=== PATIENT | female | born 1980 | race Caucasian/White ===

== ENCOUNTER 2020-06-10 11:03 | Outpatient (CLI) | payer BC, SELFPAY ==
--- NOTE | ~2020-06-10 | US_ITS ---
EXAMINATION: US soft tissue UE RT DATE: 06/10/2020 12:23 INDICATION: Identify Location for Nexplanon implant TECHNIQUE: Multiple grayscale and Doppler ultrasound images of the right upper arm were obtained. COMPARISON: Right humerus radiographs dated 06/10/2020 FINDINGS: Initially the implant was unable to be identified. Radiographs of the right upper arm were obtained a long with fluoroscopy to identify the generalized location and depth of the implant. Subsequent [facility] ultrasound identified the 4 cm long linear echogenic Nexplanon implant just deep to the superfici al muscular fascia of the medial aspect of the biceps brachii at the junction of the proximal to mid third of the right upper arm. The location orientation of the implant was marked on the skin for plan billy subsequent explantation. The depth of the implant is approximately 6-8 mm deep to the skin surfac e. IMPRESSION: 1. Implant identified and marked at the medial aspect of the proximal to middle third of the right up per arm. Reviewed, dictated and finalized at location A. IMPRESSION: 1. Implant identified and marked at the medial aspect of the proximal to middle third of the right upper arm.
--- NOTE | ~2020-06-10 | XR_ITS ---
XR humerus RT DATE: 06/10/2020 12:10 INDICATION: Nexplanon location TECHNIQUE: AP and lateral views COMPARISON: None FINDINGS: Nexplanon implant is identified within the anteromedial subcutaneous tissues of the right u pper extremity at the level of the mid to upper humeral shaft. No significant bony abnormality is identified IMPRESSION: Nexplanon implant Reviewed, dictated and finalized at location B. IMPRESSION: Nexplanon implant
== END 2020-06-10 11:04 | disposition home or self-care (01) ==
PROVIDERS: PCP Physician Assistant Medical; Visit Provider Student in an Organized Health Care Education/Training Program
DX: Z30.46 Encounter for surveillance of implantable subdermal contraceptive (principal)
CPT/HCPCS: 73060; 76882

== ENCOUNTER → 2023-04-26 13:57 | Outpatient (CLI) | payer BC, SELFPAY ==
--- NOTE | ~2023-04-26 | MM_ITS ---
EXAMINATION: MM screening jessica BI w fabiano HISTORY: Screening mammogram TECHNIQUE: Craniocaudal and mediolateral oblique 3-D tomosynthesis images were obtained and synthetic 2-D images were generated. CAD analysis was submitted and interpreted. COMPARISON: No prior mammogram is available for comparison at this institution. Baseline examination. BREAST PARENCHYMAL COMPOSITION: FINDINGS: Rounded 14.5 mm low-density circumscribed opacity in the upper outer left breast with halo sign, benign in appearance, most likely a benign cyst. There is no evidence of suspicious mass, calci fication, or architectural distortion to suggest malignancy in either breast. IMPRESSION: 1. Benign 14.5 mm circumscribed low-density upper outer quadrant left breast opacity, likely a benign cyst. No mammographic evidence of malignancy. 2. Recommend routine screening mammography in one year. BI-RADS Category 2: Benign finding(s). 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 Benign 14.5 mm circumscribed low-density upper outer quadrant left breast op acity, likely a benign cyst. No mammographic evidence of malignancy. 2. Recommend routine screening mammography in one year. BI-RADS Category 2: Benign finding(s).
== END ==
PROVIDERS: PCP Obstetrics & Gynecology; Visit Provider Obstetrics & Gynecology
DX: Z12.31 Encounter for screening mammogram for malignant neoplasm of breast (principal); R92.8 Other abnormal and inconclusive findings on diagnostic imaging of breast
CPT/HCPCS: 77063; 77067

== ENCOUNTER 2024-06-07 13:26 | Outpatient (CLI) | payer BC, SELFPAY ==
--- NOTE | ~2024-06-07 | MM_ITS ---
EXAMINATION: MM screening jessica BI w fabiano HISTORY: Screening TECHNIQUE: Craniocaudal and mediolateral oblique 3-D tomosynthesis images were obtained and synthetic 2-D images were generated. CAD analysis was submitted and interpreted. COMPARISON: 04/26/2023 BREAST PARENCHYMAL COMPOSITION: Dense: The breasts are heterogeneously dense, which may obscure small masses FINDINGS: There is no evidence of suspicious mass, calcification, or architectural distortion to sugg est malignancy in either breast. There has been no suspicious interval change. IMPRESSION: 1. No mammographic evidence of malignancy. 2. Recommend routine screening mammography in one year. BI-RADS Category 1: Negative Reviewed, dictated and finalized at location B.
== END 2024-06-07 13:27 | disposition home or self-care (01) ==
LOC: MICIMG 13:27
PROVIDERS: PCP Obstetrics & Gynecology; Visit Provider Obstetrics & Gynecology
DX: Z12.31 Encounter for screening mammogram for malignant neoplasm of breast (principal)
CPT/HCPCS: 77063; 77067

== ENCOUNTER 2024-11-20 10:05 | Outpatient (CLI) | payer BC, SELFPAY ==
--- OUTSIDE RECORDS SUMMARY | 2024-11-20 10:35 | XMS_ITS | Clinical Summary ---
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 Name Role Phone Unavailable Primary Care Provider Unavailabl e Social History Tobacco Use Types Packs/Day Years Used Date Smoking Tobacco: Never Assessed Comments Unknown Sex and Gender Information Value Date Recorded Sex Assigned at Not on file Legal Sex Female 4:47 PM CDT Gender Identity Not on file Sexual Orientation Not on file Plan of Treatment Health Maintenance Due Date Last Done Comments Cervical Cancer Screening Pa p Smear (Age 30 to 64) Every 3 Years 1982 Annual Physical 1985 Hepatitis C 2000 DTaP, Tdap and Td Vaccines ( 1 - Tdap) 2001 Hepatitis B Vaccines (1 of 3 - 19+ 3-dose series) 2001 HPV Vaccines (1 - 3-dose SCD M series) 2009 Cervical Cancer Screening Pa p with HPV Testing (Age 30 to 64) Every 5 Years 2012 Cervical Cancer Screening with HPV 2012 Mammogram Screening 2022 COVID-19 Vaccine (2023-2 5 season) 2024 Meningococcal B Vaccine Aged Out No l onger eligible based on patient's age to complete this topic Meningococcal Vaccine Aged Out No gagandeep dimitrios eligible based on patient's age to complete this topic Pneumococcal Vaccine: Pediat rics (0 to 5 Years) and At-Risk Patients (6 to 49 Years) Aged Out No longer eligible b ased on patient's age to complete this topic RSV Immunizations Under 20 Months Aged Out No longer eligible based on patient's age to complete this topic
[2024-11-20 11:29] LABS: Thyroid Stimulating Hormone Reflex 2.020 uIU/mL (0.465-4.68)
[2024-11-28 04:07] LABS: Free Testosterone (Direct) 1.0 pg/mL (0.0-4.2)
== END 2024-11-20 10:06 | disposition home or self-care (01) ==
LOC: ANHLAB 10:07
PROVIDERS: PCP Physician Assistant Medical; Visit Provider Obstetrics & Gynecology
DX: R63.5 Abnormal weight gain (principal); F52.0 Hypoactive sexual desire disorder
CPT/HCPCS: 36415; 84402; 84403; 84443